=== PATIENT | male | born 1990 | race Two or more races ===

== ENCOUNTER 2018-09-03 17:39 | Emergency (ER) | payer BC, OTHER ==
[~2018-09-03] VITALS: Ht 167.6 cm; Wt 58.0 kg
[2018-09-03 19:06] LABS: BASOPHILS # (AUTO) 0.03 x10^3/uL (0-0.1); BASOPHILS % (AUTO) 1 % (0-1); EOSINOPHILS # (AUTO) 0.05 x10^3/uL (0-0.4); EOSINOPHILS % (AUTO) 1 % (1-7); LYMPHOCYTES # (AUTO) 2.31 x10^3/uL (1-3.4); LYMPHOCYTES % (AUTO) 37 % (22-44); MD NO; MEAN CORPUSCULAR HGB CONC 33.6 g/dL (33.2-36.2); MEAN CORPUSCULAR VOLUME 98.2 fL (81-97); MEAN PLATELET VOLUME 7.8 fL (7.4-10.4); MONOCYTES # (AUTO) 0.47 x10^3/uL (0.2-0.8); MONOCYTES % (AUTO) 8 % (2-9); NEUTROPHILS # (AUTO) 3.43 x10^3/uL (1.8-6.8); NEUTROPHILS % (AUTO) 55 % (42-75); PLATELET COUNT 214 x10^3/uL (130-400); RED BLOOD COUNT 4.57 x10^6/uL (4.38-5.82); RED CELL DISTRIBUTION WIDTH 12.3 % (9.4-14.8)
--- NOTE | 2018-09-03 19:11 | NUR ---
PT PRESENTING TO ER FOR LEFT LOWER ABD PAIN, DULL IN SENSATION X3 DAYS. NO N/V/D, URINARY SYMPTOMS, RADIATING PAIN TO BACK. LAST BM TODAY, NORMAL. LABS COLLECTED IN PIT. PT UP TO RESTROOM FOR URINE SAMPLE. PA TO BEDSIDE FOR ASSESSMENT. CALL LIGHT WITHIN REACH. AWAITING FURTHER ORDERS AND RESULTS AT THIS TIME
[2018-09-03 19:18] LABS: ALANINE AMINOTRANSFERASE 28 U/L (12-78); ANION GAP 6 mmol/L (5-15); CALCIUM 9.2 mg/dL (8.5-10.1); CHLORIDE 107 mmol/L (98-107); CREATININE 1.13 mg/dL (0.7-1.3)
[2018-09-03 19:20] LABS: ALKALINE PHOSPHATASE 48 U/L (45-117); BILIRUBIN,TOTAL 0.4 mg/dL (0.2-1.0); TOTAL PROTEIN 7.7 g/dL (6.4-8.2)
[2018-09-03 19:29] LABS: MICROSCOPIC NOT IND
[2018-09-03 19:30] VITALS: BP 122/83
--- NOTE | 2018-09-03 19:39 | NUR ---
ADDITIONAL ORDERS RECEIVED AT THIS TIME
[2018-09-03 19:45] LABS: CULTURE INDICATED? NO
--- NOTE | 2018-09-03 19:55 | NUR ---
ALL RESULTS BACK AT THIS TIME, CHART UP FOR RECHECK
--- NOTE | 2018-09-03 20:51 | NUR ---
REPORT OF PT FROM JESSICA AGGARWAL AND ASSUMING CARE OF PT AT THIS TIME. PT D/C WITH D/C SUMMARY. ALL QUESTIONS ANSWERED. PT DENIES ANY OTHER NEEDS PERTAINING TO THIS VISIT. PT AMBULATES TO REGSITRATION DESK WITH STEADY GAIT FOR D/C HOME.
== END 2018-09-03 20:54 | disposition home or self-care (01) ==
LOC: ED 20:43
DX: R10.84 Generalized abdominal pain (principal)
CPT/HCPCS: 36415; 74021; 80053; 81003; 83690; 85025; 99284

== ENCOUNTER 2019-02-17 13:50 | Emergency (ER) | payer OTHER ==
[~2019-02-17] VITALS: Ht 165.1 cm; Wt 57.0 kg
[2019-02-17 14:01] VITALS: BP 123/77
--- NOTE | 2019-02-17 14:46 | NUR ---
OFF FLOOR TO CT
== END 2019-02-17 15:36 | disposition home or self-care (01) ==
LOC: ED 14:55
DX: S39.011A Strain of muscle, fascia and tendon of abdomen, initial encounter (principal); X58.XXXA Exposure to other specified factors, initial encounter; Y93.89 Activity, other specified; Y92.89 Other specified places as the place of occurrence of the external cause; Y99.8 Other external cause status
CPT/HCPCS: 74176; 99284